=== PATIENT | male | born 1980 | race Caucasian/White ===

== ENCOUNTER 2024-04-03 14:15 | Emergency (ER) | payer SELFPAY ==
[~2024-04-03] VITALS: Ht 177.8 cm; Wt 81.8 kg
[2024-04-03 14:37] VITALS: BP 131/100; PULSE 119; RESP 14; TEMP 98.6
== END 2024-04-03 19:22 | disposition left against medical advice (07) ==
LOC: EMS 14:15
DX: H92.03 Otalgia, bilateral (principal); Z53.21 Procedure and treatment not carried out due to patient leaving prior to being seen by health care provider